=== PATIENT | female | born 1975 | race African-American/Black ===

== ENCOUNTER 2021-07-08 21:57 | Emergency (ER) | payer OTHER | END 2021-07-09 00:52 | disposition home or self-care (01) | LOC: ED 21:57 | DX: R10.30 Lower abdominal pain, unspecified (principal) | CPT/HCPCS: 99281 ==

== ENCOUNTER 2021-07-09 20:33 | Emergency (ER) | payer OTHER ==
[~2021-07-09] VITALS: Ht 170.2 cm; Wt 104.3 kg
[2021-07-09 21:42] LABS: PLATELET COUNT 182 K/uL (152-353)
[2021-07-09 21:59] LABS: POTASSIUM 3.5 mmol/L (3.6-5.2)
[2021-07-09 23:00] VITALS: BP 132/54; TEMP 98.7
== END 2021-07-09 23:00 | disposition home or self-care (01) ==
LOC: ED 20:33
PROVIDERS: Emergency Medicine
DX: R10.31 Right lower quadrant pain (principal)
CPT/HCPCS: 36415; 80053; 81000; 85027; 96360; 96374; 99284; J1885; Q9963